=== PATIENT | male | born 1980 | race Caucasian/White ===

== ENCOUNTER 2018-06-01 22:47 | Emergency (ER) | payer BC ==
[2018-06-01 23:08] VITALS: BP 135/83; PULSE 75; TEMP 98.7; BMI 26.6
--- NOTE | 2018-06-01 23:41 | PDOC ---
History of Present Illness - General History Source: Patient Exam Limitations: No Limitations - History of Present Illness Initial Comments: 06/02/18 01:54 The patient is a 38 year old male with a significant PMH of torrentz and hypertension who presents to the emergency department with penile pain since earlier today. The patient reports that he had a circumcision procedure done today at about 12 pm. He states that following his procedure he began to experience some urinary retention. He state that he contacted his urologist and surgeon by which he was told to come to the ED. The patient reports that he was concerned that the bandage around penis was too tight. The patient denies any other urinary symptoms. He denies and pain. The patient states that he went for this procedure secondary to constriction of foreskin during erection and sex. The patient denies any other symptoms or complaints. Urology: Dr. Olguin <Jl Lynn - Last Filed: 06/02/18 01:54> <Deja Recio - Last Filed: 06/02/18 21:56> - General Chief Complaint: Wound Stated Complaint: EVALUATION Time Seen by Provider: 06/01/18 23:41 Past History <Jl Lynn - Last Filed: 06/02/18 01:54> - Past Medical History COPD: No Other medical history: tourette's syndrome - Surgical History Appendectomy: Yes - Suicide/Smoking/Psychosocial Hx Smoking History: Never smoked <Deja Recio - Last Filed: 06/02/18 21:56> - Past Medical History Allergies/Adverse Reactions: Allergies Allergy/AdvReac Type Severity Reaction Status Date / Time No Known Allergies Allergy Verified 06/01/18 23:05 Home Medications: Ambulatory Orders NK [No Known Home Medication] 06/02/18 Review of Systems - Review of Systems Able to Perform ROS?: Yes Comments:: 06/02/18 01:55 GENERAL/CONSTITUTIONAL: No fever or chills. No weakness. HEAD, EYES, EARS, NOSE AND THROAT: No change in vision. No ear pain or discharge. No sore throat. CARDIOVASCULAR: No chest pain or shortness of breath. RESPIRATORY: No cough, wheezing, or hemoptysis. GASTROINTESTINAL: No nausea, vomiting, diarrhea or constipation. GENITOURINARY: (+)urinary retention. No dysuria, frequency, or change in urination. MUSCULOSKELETAL: No joint or muscle swelling or pain. No neck or back pain. SKIN: No rash NEUROLOGIC: No headache, vertigo, loss of consciousness, or change in strength/ sensation. ENDOCRINE: No increased thirst. No abnormal weight change. HEMATOLOGIC/LYMPHATIC: No anemia, easy bleeding, or history of blood clots. ALLERGIC/IMMUNOLOGIC: No hives or skin allergy. <Jl Lynn - Last Filed: 06/02/18 01:54> *Physical Exam - Vital Signs Last Vital Signs Temp Pulse Resp BP Pulse Ox 98.7 F 75 18 135/83 100 06/01/18 23:06 06/01/18 23:06 06/01/18 23:06 06/01/18 23:06 06/01/18 23:06 - Physical Exam Comments: 06/02/18 01:54 GENERAL:Awake, alert, and fully oriented, in no acute distress.Removed dressing from site and placed new bandages. Able to pee normally HEAD: No signs of trauma EYES: PERRLA, EOMI, sclera anicteric, conjunctiva clear ENT: Auricles normal inspection, hearing grossly normal, nares patent, oropharynx clear without exudates. Moist mucosa NECK: Normal ROM, supple, no lymphadenopathy, JVD, or masses LUNGS: Breath sounds equal, clear to auscultation bilaterally. No wheezes, and no crackles HEART: Regular rate and rhythm, normal S1 and S2, no murmurs, rubs or gallops ABDOMEN: Soft, nontender, normoactive bowel sounds. No guarding, no rebound. No masses EXTREMITIES: Normal range of motion, no edema. No clubbing or cyanosis. No cords, erythema, or tenderness NEUROLOGICAL: Cranial nerves II through XII grossly intact. Normal speech, normal gait SKIN:(+)8-6 sutures around base of penis with minimal bleeding. Penis head is swollen. Warm, Dry, normal turgor, no rashes or lesions noted. <Jl Lynn - Last Filed: 06/02/18 01:54> - Vital Signs Last Vital Signs Temp Pulse Resp BP Pulse Ox 98.7 F 75 18 135/83 100 06/01/18 23:06 06/01/18 23:06 06/01/18 23:06 06/01/18 23:06 06/01/18 23:06 <Deja Recio - Last Filed: 06/02/18 21:56> Moderate Sedation - Procedure Monitoring Vital Signs: Procedure Monitoring Vital Signs Temperature 98.7 F 06/01/18 23:06 Pulse Rate 75 06/01/18 23:06 Respiratory Rate 18 06/01/18 23:06 Blood Pressure 135/83 06/01/18 23:06 O2 Sat by Pulse Oximetry (%) 100 06/01/18 23:06 <Jl Lynn - Last Filed: 06/02/18 01:54> - Procedure Monitoring Vital Signs: Procedure Monitoring Vital Signs Temperature 98.7 F 06/01/18 23:06 Pulse Rate 75 06/01/18 23:06 Respiratory Rate 18 06/01/18 23:06 Blood Pressure 135/83 06/01/18 23:06 O2 Sat by Pulse Oximetry (%) 100 06/01/18 23:06 <Deja Recio - Last Filed: 06/02/18 21:56> Medical Decision Making - Medical Decision Making 06/02/18 21:55 Stable for discharge. Pt appears well. <Deja Recio - Last Filed: 06/02/18 21:56> *DC/Admit/Observation/Transfer - Attestations Scribe Attestion: 06/02/18 01:54 Documentation prepared by Jl Lynn, acting as veterinary medical officer for Deja Recio MD. <Jl Lynn - Last Filed: 06/02/18 01:54> - Discharge Dispostion Decision to Admit order: No <Deja Recio - Last Filed: 06/02/18 21:56> Diagnosis at time of Disposition: Aftercare for circumcision - Discharge Dispostion Disposition: HOME Condition at time of disposition: Stable - Referrals Referrals: David Cano MD [Primary Care Provider] - - Patient Instructions Printed Discharge Instructions: How to Care for a Surgical Wound - Post Discharge Activity
== END 2018-06-02 00:30 | disposition home or self-care (01) ==
LOC: JER 22:47
DX: Z48.816 Encounter for surgical aftercare following surgery on the genitourinary system (principal); Z48.01 Encounter for change or removal of surgical wound dressing; I10 Essential (primary) hypertension; F95.2 Tourette's disorder
CPT/HCPCS: 99281-25